=== PATIENT | female | born 1950 | race Caucasian/White ===

== ENCOUNTER 2018-07-16 08:10 | Outpatient (CLI) | payer MEDICARE ==
--- NOTE | 2018-07-16 09:44 | ULT ---
ULTRASOUND THYROID: HISTORY: Thyroid disorder. EZ7.9. COMPARISON: None. TECHNIQUE: Real-time, cullen scale, and color evaluation of the thyroid is performed. The thyroid is very heterogeneous. Mild background hypervascularity. The isthmus measures 3 mm in AP dimension. The right lobe measures 4.1 x 1.6 x 1.5 cm and the left m easures 3.9 x 2 x 2.1 cm. Multiple bilateral thyroid nodules. In the superior right lobe of the thyroid is a 1.2 x 0.9 x 0.7 c m solid wider than tall isoechoic nodule with smooth margins without echogenic foci. This is a TIRAD S 3: mildly suspicious. Given its size, no followup or fine needle aspiration is required. In the interpolar right lobe is a 0.7 x 0.6 x 0.8 cm solid hypoechoic wider than tall nodule with smo oth margins without echogenic foci. This is a TIRADS 4: moderately suspicious with small size, no f ollowup or fine needle aspiration is required. In the inferior pole is a 1.6 x 1 x 1.2 cm solid isoechoic nodule with poorly defined margins without echogenic foci. This is TIRADS 3: mildly suspicious. Given its size, followup in 1 year is requir ed per TIRADS criteria. In the interpolar left lobe of the thyroid is a 2.4 x 1.6 x 1.8 cm mixed solid and cystic nodule with hypervascularity which is isoechoic wider than tall with smooth margins without echogenic foci. Thi s is TIRADS 2: not suspicious. No followup or aspiration is required. In the inferior margin of th e left lobe of the thyroid is a 1.8 x 1 x 1.4 cm solid isoechoic wider than tall nodule with smooth m argins without echogenic foci. This is TIRDS 3: mildly suspicious. Given its size, followup in 1 y ear is recommended per TIRADS criteria. IMPRESSION: There are multiple thyroid nodules, some of which require a followup in 6 months-1 year per TIRADS cr iteria. None require aspiration at this time. POS: [facility]
== END 2018-07-16 08:11 | disposition home or self-care (01) ==
LOC: BICULT 08:10
PROVIDERS: ATTEND Family Medicine
DX: E07.9 Disorder of thyroid, unspecified (principal); E04.1 Nontoxic single thyroid nodule
CPT/HCPCS: 76536

== ENCOUNTER 2018-07-20 10:24 | Outpatient (CLI) | payer MEDICARE ==
--- NOTE | 2018-07-20 14:01 | BD ---
DEXA BONE MINERAL DENSITY STUDY: HISTORY: Osteoporosis screening. COMPARISON: None. FINDINGS: Lumbar Spine: BMD (g/cm2) L1 0.909 T-Score: -0.7 1.0 L2 0.901 T-Score: -1.2 0.8 L3 1.101 T-Score: 0.2 2.2 L4 1.158 T-Score: 0.9 3.0 L1-L4 1.024 T-Score: -0.2 1.8 WHO classification normal. Femoral Neck: 0.787 T-Score: -0.6 1.1 Total Femur: 0.995 T-Score: 0.4 1.8 WHO classification normal. Impression: Normal bone mineral density. POS: [facility]
--- NOTE | 2018-07-21 11:13 | MMO ---
Bilateral MAMMO Bilat Screen [facility]. CLINICAL HISTORY: Patient is 67 years old and is seen for screening. The patient has the following family history of breast cancer: maternal aunt and paternal aunt. The patient has no personal history of cancer. VIEWS: The views performed were: bilateral craniocaudal with tomosynthesis and bilateral mediolateral oblique with tomosynthesis. MAMMOGRAM FINDINGS: There are scattered fibroglandular densities. There are no suspicious masses, suspicious calcifications, or new areas of architectural distortion. IMPRESSION: THERE IS NO MAMMOGRAPHIC EVIDENCE OF MALIGNANCY. A ROUTINE FOLLOW-UP MAMMOGRAM IN 1 YEAR IS RECOMMENDED. THE RESULTS OF THIS EXAM WERE SENT TO THE PATIENT. ACR BI-RADS Category 1 - Negative MAMMOGRAPHY NOTE: 1. A negative mammogram report should not delay a biopsy if a dominant of clinically suspicious mass is present. 2. Approximately 10% to 15% of breast cancers are not detected by mammography. 3. Adenosis and dense breasts may obscure an underlying neoplasm.
== END 2018-07-20 10:25 | disposition home or self-care (01) ==
LOC: BICMAMMO 10:24
PROVIDERS: ATTEND Family Medicine
DX: Z12.31 Encounter for screening mammogram for malignant neoplasm of breast (principal); Z13.820 Encounter for screening for osteoporosis; Z80.3 Family history of malignant neoplasm of breast
CPT/HCPCS: 77063; 77067; 77080

== ENCOUNTER 2024-06-02 09:50 | Outpatient (CLI) | payer MEDICARE | END 2024-06-02 09:51 | disposition home or self-care (01) | LOC: BICMAMMO 09:50 | PROVIDERS: ATTEND Family Medicine | DX: Z12.31 Encounter for screening mammogram for malignant neoplasm of breast (principal); M85.851 Other specified disorders of bone density and structure, right thigh; Z80.3 Family history of malignant neoplasm of breast | CPT/HCPCS: 77063; 77067; 77080 ==